=== PATIENT | male | born 1995 | race Caucasian/White ===

== ENCOUNTER → 2017-11-02 | Outpatient (CLI) | payer BC ==
[~2017-11-02] MED LIST: BLEPH OU; CEPHALEXIN500 M1 PO; DOXYCYCLINE 10100 MG PO; ERYTHROCIN STE250 M1 PO; NORCO 325 MG-51 TAB PO; PERCOCET 325 MG1 TA2 PO
== END ==
LOC: COL.RAD 12:34
DX: N43.3 Hydrocele, unspecified (principal); N50.89 Other specified disorders of the male genital organs

== ENCOUNTER 2018-02-19 15:23 | Emergency (ER) | payer BC ==
[2018-02-19 15:35] VITALS: TEMP 97.3
[2018-02-19 16:20] LABS: COLLECTION METHOD CLEAN CATCH
[2018-02-19 16:25] LABS: BASO # 0.1 (0.0-0.2); BASO % 0.7 % (0.0-2.0); EOS # 0.1 (0.0-0.7); EOS % 1.6 % (0-4.0); GRAN # 5.4 (1.4-6.5); GRAN % 62.8 % (42.2-75.2); HEMATOCRIT 45.9 % (42.0-52.0); HEMOGLOBIN 15.7 g/dl (13.5-18.0); LYMPH # 2.4 (1.2-3.4); LYMPH % 27.7 % (20.0-51.0); MEAN CELL VOLUME 86 fl (80.0-100.0); MEAN CORPUSCULAR HEMOGLOBIN 30 pg (27.0-31.0); MEAN CORPUSCULAR HGB CONC 34 g/dl (33.0-37.0); MEAN PLATELET VOLUME 9.4 fl (7.4-10.4); MONO # 0.6 (0.1-0.6); PLATELET COUNT 277 K/mm3 (130-400); RED BLOOD COUNT 5.33 M/mm3 (4.20-5.60); REDCELL DISTRIBUTION WIDTH-CV 12.5 % (11.5-14.5)
[2018-02-19 16:29] LABS: PH 5 (5-8); SQUAMOUS EPITHELIAL 0-2 /hpf; URINE APPEARANCE Clear; URINE BACTERIA None Seen /hpf; URINE BILIRUBIN Negative (NEGATIVE); URINE BLOOD Negative (NEGATIVE); URINE COLOR Yellow; URINE GLUCOSE Negative (NEGATIVE); URINE KETONE Negative (NEGATIVE); URINE LEUKOCYTE ESTERASE Negative (NEGATIVE); URINE NITRATE Negative (NEGATIVE); URINE PROTEIN(semi-quant) Negative (NEGATIVE); URINE RBC 0-2 /hpf; URINE UROBILINOGEN Negative (NEGATIVE)
[2018-02-19 16:38] LABS: ALANINE AMINOTRANSFERASE 36 U/L (21-72); ALBUMIN 4.4 gm/dL (3.5-5.0); ALKALINE PHOSPHATASE 84 U/L (50-136); ANION GAP 7 mmol/L (7-16); AST,SGOT 33 U/L (15-37); BILIRUBIN,TOTAL 0.6 mg/dL (0.0-1.0); BLOOD UREA NITROGEN 22 mg/dL (9-20); CALCIUM 9.1 mg/dL (8.4-10.2); CARBON DIOXIDE 29 mmol/L (22-30); CHLORIDE 106 mmol/L (98-107); CREATININE, serum 1.06 mg/dL (0.66-1.25); GLUCOSE 96 mg/dL (74-106); POTASSIUM 4.1 mmol/L (3.4-5.0); SODIUM 142 mmol/L (137-145); TOTAL PROTEIN 7.7 gm/dL (6.4-8.2)
[2018-02-19 16:39] LABS: C-REACTIVE PROTEIN < 0.5 mg/dL (0.0-0.9)
[2018-02-19] MEDS ORDERED: NAPROSYN500 MG PO (17:28)
[2018-02-19 17:42] VITALS: BP 124/69; PULSE 71
== END 2018-02-19 17:43 | disposition home or self-care (01) ==
LOC: COL.ER 15:23
PROVIDERS: Emergency Medicine
DX: R10.33 Periumbilical pain (principal)
CPT/HCPCS: J1885; J7030; Q9967